=== PATIENT | male | born 1995 | race Caucasian/White ===

== ENCOUNTER 2018-09-02 19:54 | Emergency (ER) | payer OTHER ==
--- NOTE | 2018-09-02 21:22 | EKG REPORT ---
SEVERITY:- BORDERLINE ECG - SINUS RHYTHM PROBABLE LEFT ATRIAL ABNORMALITY BORDERLINE RIGHT AXIS DEVIATION : Confirmed by: Micheal Tarmmell MD 02-Sep-2018 21:22:05
--- NOTE | 2018-09-02 23:24 | RADIOLOGY REPORT (SQ) ---
EXAM DESCRIPTION: XR CHEST 2 VIEWS COMPLETED DATE/TME: 09/02/2018 22:37 CLINICAL HISTORY: 22 years, Male, chest pain COMPARISON: None. NUMBER OF VIEWS: 2 TECHNIQUE: Two views PA and lateral the chest were obtained. LIMITATIONS: None. FINDINGS: Unremarkable cardiac and mediastinal silhouette. Heart size is normal. Lungs are clear without focal opacity, pneumothorax or pleural effusions. The visualized bones are within normal limits. IMPRESSION: No acute cardiopulmonary abnormalities. copyright 2010 [employer] All Rights Reserved
--- NOTE | 2018-09-03 00:18 | ER Document Report ---
ED General - General Chief Complaint: Chest Pain Stated Complaint: CHEST PAIN Time Seen by Provider: 09/02/18 22:35 Primary Care Provider: MILKA STALEY MD [ACTIVE STAFF] - Follow up as needed TRAVEL OUTSIDE OF THE [place] IN LAST 30 DAYS: No - HPI Notes: Patient is a 22-year-old male who presents the emergency department for evaluation of chest pain. 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 He felt a very strong beat in his heart, then began having palpitations. Shortly afterwards he described chest tightness. It was nonradiating. He felt short of breath and nauseated with it. He states that lasted about 20 minutes. This is not the first time he has had symptoms similar to this. His first episode was about 2 months ago. He states he was seen at [facility], had blood work, EKG, imaging performed. He states that he felt they "did not take it seriously" and he came here for further evaluation. At this point he is chest pain-free. He states these episodes are not regularly brought on by exertion. 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 He states that at times he is able to relieve the chest pain partially by calming himself down. He states it returned shortly afterwards. He has been staying well-hydrated, both with water as well as electrolyte solutions. He is urinating normally. He denies any dizziness. He denies any heat intolerance, change in bowel movements. Past Medical History - General Information source: Patient - Social History Smoking Status: Never Smoker Drug Abuse: None Family History: CAD - Patient's father had an UT at the age of 47 Patient has suicidal ideation: No Patient has homicidal ideation: No - Medical History Medical History: Negative Renal/ Medical History: Denies: Hx Peritoneal Dialysis Review of Systems - Review of Systems Constitutional: No symptoms reported EENT: No symptoms reported Cardiovascular: No symptoms reported Respiratory: No symptoms reported Gastrointestinal: No symptoms reported Genitourinary: No symptoms reported Musculoskeletal: No symptoms reported Skin: No symptoms reported Neurological/Psychological: No symptoms reported Physical Exam - Vital signs Vitals: Temp Pulse Resp BP Pulse Ox 97.9 F 84 15 151/79 H 100 09/02/18 20:08 09/02/18 20:08 09/02/18 20:08 09/02/18 20:08 09/02/18 20:08 - Notes Notes: Mildly anxious appearing 22-year-old male in no acute distress. Vital signs reviewed, please refer to chart. Head is normocephalic, atraumatic. Pupils equal round, reactive to light. Neck is supple without meningismus. Heart is regular rate and rhythm. Lungs are clear to auscultation bilaterally. Abdomen is soft, nontender, normoactive bowel sounds throughout. Extremities without cyanosis, clubbing. Posterior calves are nontender. Peripheral pulses are equal. Skin is warm and dry. Patient is awake, alert, neurological exam is nonfocal. Course - Re-evaluation Re-evalutation: 09/03/18 00:15 Patient presents emergency department for evaluation of chest pain palpitations. We discussed differential diagnosis in this patient. Certainly this does not seem like ischemic heart disease. He has no signs or symptoms of hyperthy roidism otherwise. He had a negative cardiac work-up in the ER, and again I do not strongly suspect coronary artery disease as an etiology for his symptoms. His EKG is unremarkable for his age. Chest x-ray shows no acute findings. Certainly anxiety is high on the differential. I am unable to rule out an arrhythmia as the etiology of his symptoms, however. I urged him to follow-up with either his electromedical equipment technician or our on-call milk pickup driver, discuss Holter or event monitor for further evaluation. He is amenable to this plan. He is to return to the ED with worsening or new concerning symptoms of any sort. 09/03/18 00:36 I did discuss with the patient that it is possible there is an anxiety component with this. We discussed treatment, will send him home with a prescription for Vistaril. He is also given one from here in case his symptoms return this evening. - Vital Signs Vital signs: Temp Pulse Resp BP Pulse Ox 97.9 F 84 15 151/79 H 100 09/02/18 20:08 09/02/18 20:08 09/02/18 20:08 09/02/18 20:08 09/02/18 20:08 - Diagnostic Test Radiology reviewed: Reports reviewed Radiology results interpreted by me: 09/03/18 00:16 Chest X-Ray 09/02/18 22:37 IMPRESSION: No acute cardiopulmonary abnormalities. copyright 2011 [employer]- All Rights Reserved - EKG Interpretation by Me Additional EKG results interpreted by me: 09/03/18 00:16 Sinus mechanism rate of 88 bpm. Normal axis and intervals. No acute ST changes concerning for ischemia or infarction. Discharge - Discharge Clinical Impression: Palpitations Chest pain Qualifiers: Chest pain type: unspecified Qualified Code(s): R07.9 - Chest pain, unspecified Condition: Stable Disposition: HOME, SELF-CARE Instructions: Chest Pain of Unclear Cause ([facility]), Palpitations (Irregular or Rapid Heartrate) ([facility]) Additional Instructions: No clear cause was found today for your symptoms. Further outpatient evaluation should be pursued. You can have either a Holter or event monitor to evaluate for possible arrhythmias. Follow-up with primary care, or with our on-call milk pickup driver, listed below. Return to the emergency department with worsening or new concerning symptoms of any sort. Referrals: MILKA STALEY MD [ACTIVE STAFF] - Follow up as needed
[2018-09-03 00:36] VITALS: BP 100/62
[2018-09-03] MEDS ORDERED: HYDROXYZINE PAMOATE 25 MG CAPSULE PO ONE (00:36)
== END 2018-09-03 00:41 | disposition home or self-care (01) ==
LOC: ER 19:54
DX: R07.89 Other chest pain (principal); R00.2 Palpitations; R06.02 Shortness of breath; R11.0 Nausea; Z82.49 Family history of ischemic heart disease and other diseases of the circulatory system
CPT/HCPCS: 71046; 93005; 93010; 99285